=== PATIENT | female | born 1975 | race African-American/Black ===

== ENCOUNTER 2017-10-19 15:28 | Emergency (ER) | payer MEDICAID, OTHER ==
[~2017-10-19] VITALS: Ht 162.6 cm; Wt 82.0 kg
[~2017-10-19 15:28] MED LIST: FERR1TAB25 PO; IBUP-779 PO; MULT-1146 PO
[2017-10-19 19:34] LABS: BASOPHILS % 0.6 % (0.0-2.0); EOSINOPHILS % 3.7 % (0.0-5.0); HEMATOCRIT. 36.7 % (36.0-48.0); HEMOGLOBIN. 12.4 g/dL (12.0-16.0); LYMPHOCYTES % 36.5 % (20.0-50.0); MEAN CORPUSCULAR HEMOGLOBIN 28.7 pg (28.0-32.0); MEAN CORPUSCULAR VOLUME 84.7 fL (81.0-99.0); MEAN PLATELET VOLUME 9.2 fl (7.4-10.4); MONOCYTES % 7.8 % (2.0-8.0); NEUTROPHILS % 51.4 % (40.0-76.0); PLATELET 256 x1000/uL (130-400); RED BLOOD CELL COUNT 4.34 mill/uL (4.2-5.4); RED CELL DISTRIBUTION WIDTH 14.4 % (11.6-14.6)
[2017-10-19 19:48] LABS: CARBON DIOXIDE 31 mEq/L (21-32); CHLORIDE 105 mEq/L (98-107); TROPONIN I < 0.02 ng/mL (0.00-0.04)
[2017-10-19 19:54] LABS: PROTHROMBIN TIME 10.2 sec (9.4-11.6)
[2017-10-19] MEDS ORDERED: DIAZEPAM 5 MG/ML 2ML CPJ IV ONE (21:00)
[2017-10-19] MEDS ORDERED: DIAZEPAM 5 MG/ML 2ML CPJ IV NR (21:15)
[2017-10-19 21:40] VITALS: BP 119/82
[2017-10-19] MEDS ORDERED: CYCLOBENZAPRINE 10MG TABLET PO ONE (21:45)
== END 2017-10-19 21:45 | disposition home or self-care (01) ==
LOC: ER 15:58
DX: M54.9 Dorsalgia, unspecified (principal); D64.9 Anemia, unspecified; R79.1 Abnormal coagulation profile; Z88.8 Allergy status to other drugs, medicaments and biological substances
CPT/HCPCS: 36415; 71010; 80053; 83880; 84484; 85025; 85610; 93005; 99285

== ENCOUNTER 2023-04-25 11:32 | Emergency (ER) | payer BC, MEDICAID, OTHER ==
[~2023-04-25] VITALS: Ht 162.6 cm; Wt 74.0 kg
[2023-04-25 11:37] VITALS: BP 115/76; TEMP 98.6
[2023-04-25 11:39] VITALS: PULSE 77; RESP 18
[2023-04-25] MEDS ORDERED: NAPR-681 PO (13:41)
== END 2023-04-25 14:38 | disposition home or self-care (01) ==
LOC: ER 11:32
DX: S63.616A Unspecified sprain of right little finger, initial encounter (principal); Z88.1 Allergy status to other antibiotic agents; W18.30XA Fall on same level, unspecified, initial encounter; Y93.89 Activity, other specified; Y92.89 Other specified places as the place of occurrence of the external cause; Y99.8 Other external cause status
CPT/HCPCS: 73130; 99283